=== PATIENT | male | born 1955 | race Caucasian/White ===

== ENCOUNTER 2022-03-02 10:50 | Emergency (ER) | payer MEDICARE, OTHER ==
[2022-03-02] MEDS ORDERED: Sodium Chloride 0.9% 10 ML Syringe FLUSH PRN ×2 (10:56→11:56)
[2022-03-02] MEDS ORDERED: HYDROmorphone 1 MG/ML Syringe IVPUSH ONE ×2 (10:59→14:08)
[2022-03-02] MEDS ORDERED: Ondansetron 4 MG/2 ML SDV IVPUSH ONE (10:59)
[2022-03-02] MEDS ORDERED: Iopamidol 612 MG/ML 100 ML Bottle IVPUSH ONE (11:56)
[2022-03-02 13:54] LABS: CORONAVIRUS COVID-19 NAA NEGATIVE (NEGATIVE)
[2022-03-02] MEDS ORDERED: Dextrose 5%-0.9% NaCl 1,000 ML ONE (14:52)
[2022-03-02] MEDS ORDERED: Dextrose 5%-0.9% NaCl 1,000 ML IV SCH (16:15)
== END 2022-03-02 14:50 ==
LOC: JD.ED 10:50
DX: S32.019A Unspecified fracture of first lumbar vertebra, initial encounter for closed fracture (principal); S32.029A Unspecified fracture of second lumbar vertebra, initial encounter for closed fracture; S32.039A Unspecified fracture of third lumbar vertebra, initial encounter for closed fracture; S32.049A Unspecified fracture of fourth lumbar vertebra, initial encounter for closed fracture; S32.059A Unspecified fracture of fifth lumbar vertebra, initial encounter for closed fracture; S22.32XA Fracture of one rib, left side, initial encounter for closed fracture; S32.810A Multiple fractures of pelvis with stable disruption of pelvic ring, initial encounter for closed fracture; I10 Essential (primary) hypertension; E78.00 Pure hypercholesterolemia, unspecified; E66.9 Obesity, unspecified; Z20.822 Contact with and (suspected) exposure to COVID-19; Z79.899 Other long term (current) drug therapy; W11.XXXA Fall on and from ladder, initial encounter
CPT/HCPCS: 0240U; 36415; 70450; 72128; 72131; 72170; 74177; 80053; 80307; 83735; 83880; 85025; 93005; 96374; 96375; 96376; 99285; J1170; J2405; J3490; J7042; Q9967

== ENCOUNTER 2022-04-12 10:44 | Emergency (ER) | payer MEDICARE, OTHER ==
[2022-04-12] MEDS ORDERED: Sodium Chloride 0.9% 10 ML Syringe FLUSH PRN ×2 (10:50→11:08)
[2022-04-12] MEDS ORDERED: HYDROmorphone 1 MG/ML Syringe IVPUSH ONE ×3 (10:51→12:48)
[2022-04-12] MEDS ORDERED: Ondansetron 4 MG/2 ML SDV IVPUSH ONE (10:59)
[2022-04-12] MEDS ORDERED: Sodium Chloride 0.9% 1,000 ML IV SCH (11:00)
[2022-04-12] MEDS ORDERED: Iopamidol 755 MG/ML 50 ML Bottle IVPUSH ONE (11:08)
[2022-04-12] MEDS ORDERED: Iopamidol 755 Mg/ML 100 ML Bottle IVPUSH ONE (11:08)
[2022-04-12] MEDS ORDERED: Heparin Sodium 5,000 Units/ML Vial IVPUSH ONE (12:02)
[2022-04-12] MEDS ORDERED: Heparin Sodium/D5W 25,000 UNITS/500 ML BAG IV SCH (12:15)
[2022-04-12] MEDS ORDERED: Metoclopramide 10 MG/2 ML SDV IVPUSH ONE (13:26)
== END 2022-04-12 14:25 ==
LOC: JD.ED 10:44
DX: R55 Syncope and collapse (principal); I26.92 Saddle embolus of pulmonary artery without acute cor pulmonale; I11.0 Hypertensive heart disease with heart failure; I50.9 Heart failure, unspecified; E66.9 Obesity, unspecified; Z68.37 Body mass index [BMI] 37.0-37.9, adult; Z88.0 Allergy status to penicillin; Z79.899 Other long term (current) drug therapy
CPT/HCPCS: 36415; 70450; 71260; 72125; 72131; 74177; 80053; 84484; 85025; 85610; 85730; 93005; 96361; 96365; 96366; 96375; 96376; 99285; J1170; J1644; J2405; J2765; J3490; J7030; Q9967